=== PATIENT | female | born 1985 | race Asian ===

== ENCOUNTER 2020-06-25 23:44 | Emergency (ER) | payer BC ==
[~2020-06-25] VITALS: Ht 167.6 cm; Wt 58.1 kg
--- NOTE | 2020-06-25 23:50 | NUR ---
CALLED FOR TRIAGE , NO ANSWER
--- NOTE | 2020-06-26 00:23 | NUR ---
AMBULATED TO THE RESTROOM TO PROVIDE URINE SAMPLE
[2020-06-26] MEDS ORDERED: ONDANSETRON HCL/PF 4 MG/2 ML VIAL ONE (00:25)
[2020-06-26] MEDS ORDERED: MORPHINE SULFATE INJ 4 MG/ML DISP.SYRIN ONE (00:26)
[2020-06-26] MEDS ORDERED: IV NS 0.9% 1,000 ML BAG IV ONE (00:30)
[2020-06-26] MEDS ORDERED: MORPHINE SULFATE INJ 2 MG/ML DISP.SYRIN IV ONE (00:30)
[2020-06-26] MEDS ORDERED: ONDANSETRON HCL/PF 4 MG/2 ML VIAL IVP ONE (00:30)
[2020-06-26 00:54] LABS: BASOPHILS % (AUTO) 0.1 % (0.0-2.0); EOSINOPHILS % (AUTO) 0.3 % (0.0-6.0); HEMATOCRIT 39 % (33-45); HEMOGLOBIN 12.3 g/dL (11.5-14.8); LYMPHOCYTES # (AUTO) 1.3 /CMM (0.8-4.8); LYMPHOCYTES % (AUTO) 8.5 % (20.0-44.0); MEAN CORPUSCULAR HGB CONC 32 g/dl (31.0-36.0); MEAN CORPUSCULAR VOLUME 93 fL (82-100); MONOCYTES # (AUTO) 0.9 /CMM (0.1-1.30); MONOCYTES % (AUTO) 6.4 % (2.0-12.0); NEUTROPHILS # (AUTO) 12.6 /CMM (1.8-8.9); NEUTROPHILS % (AUTO) 84.7 % (43.0-81.0); PLATELET COUNT (AUTO) 261 /CMM (150-450); RED BLOOD CELL COUNT(AUTO) 4.12 MIL/uL (4.0-5.2); WHITE BLOOD COUNT (AUTO) 14.8 K/uL (4.3-11.0)
[2020-06-26 00:57] LABS: CALCIUM, SERUM 8.8 mg/dL (8.5-10.1); CREATININE 0.5 mg/dL (0.6-1.3); POTASSIUM 4.2 mmol/L (3.5-5.1)
[2020-06-26 01:07] LABS: APPEARANCE,URINE SL CLOUDY (CLEAR); BILIRUBIN,URINE NEGATIVE (NEGATIVE); BLOOD, URINE LARGE Ery/uL (NEGATIVE); COLOR,URINE YELLOW (YELLOW); KETONES,URINE 15 (NEGATIVE); LEUKOCYTE ESTERASE ,URINE NEGATIVE (NEGATIVE); NITRITE, URINE NEGATIVE (NEGATIVE); PROTEIN,URINE NEGATIVE (NEGATIVE); UGLUCOSE NEGATIVE (NEGATIVE); UROBILINOGEN,URINE 0.2 EU/dL (0.2)
[2020-06-26 01:14] LABS: BACTERIA,URINE Moderate /HPF (None Seen); SQUAMOUS EPITHELIAL CELL,UR Moderate /HPF (None Seen)
[2020-06-26] MEDS ORDERED: CEFTRIAXONE 1GM BAG (ER ONLY) 50 ML IV ONE (02:28)
[2020-06-26] MEDS ORDERED: CEFTRIAXONE 1 G in IV D5W 50 ML IV ONE (02:30)
--- NOTE | 2020-06-26 03:04 | NUR ---
ULTRASOUND AT BEDSIDE
--- NOTE | 2020-06-26 05:13 | NUR ---
Patient discharged to home in stable condition. Written and verbal after care instructions given. Patient verbalizes understanding of instruction.IV removed. Catheter intact and site benign. Pressure and 4x4 applied to site. No bleeding noted.
--- NOTE | 2020-06-26 05:57 | NUR ---
Note undone in ED - 06/26/20 at 0558 by EVICTOR IV removed. Catheter intact and site benign. Pressure and 4x4 applied to site. No bleeding noted.
[2020-06-26 05:59] VITALS: BP 117/75
== END 2020-06-26 05:59 | disposition home or self-care (01) ==
LOC: ER 23:47
DX: N39.0 Urinary tract infection, site not specified (principal)
CPT/HCPCS: 36415; 76856; 80048; 81001; 84703; 85025; 87086; 96361; 96365; 99284; J0696 ×2; J2405; J7030; J7060; 81000-TC; J2270

== ENCOUNTER 2021-06-03 02:46 | Emergency (ER) | payer BC ==
[~2021-06-03] VITALS: Ht 167.6 cm; Wt 62.6 kg
--- NOTE | 2021-06-03 03:00 | NUR ---
PATIENT BIBS STATING CHEST PAIN, PATIENT HAS BEEN POINTING AT EPIGASTRIC, PATIENT STATED PAIN SINCE PAST 4 HRS. PATIENT REPORTED HAVING 2 SHOTS OF TEQUILA EARLIER. PATIENT HAD AN EPISODE OF VOMITING AT HOME. PATIENT IS A/OX 4, RR EVEN AND UNLABORED, NO SOB NOTED. PATIENT CONNECTED TO MONITORS.
[2021-06-03] MEDS ORDERED: LIDOCAINE VISCOUS 2% UD 15 ML UDC ONE (03:16)
[2021-06-03] MEDS ORDERED: MAG HYDROX/AL HYDROX/SIMETH 30 ML UDC ONE (03:16)
[2021-06-03] MEDS ORDERED: FAMOTIDINE (20 MG) 20 MG TABLET ONE (03:16)
[2021-06-03 03:28] LABS: BASOPHILS % (AUTO) 0.1 % (0.0-2.0); EOSINOPHILS % (AUTO) 0.4 % (0.0-6.0); HEMATOCRIT 29 % (33-45); HEMOGLOBIN 9.3 g/dL (11.5-14.8); LYMPHOCYTES # (AUTO) 0.7 K/uL (0.8-4.8); LYMPHOCYTES % (AUTO) 9.5 % (20.0-44.0); MEAN CORPUSCULAR HGB CONC 32 g/dl (31.0-36.0); MEAN CORPUSCULAR VOLUME 82 fL (82-100); MONOCYTES # (AUTO) 0.6 K/uL (0.1-1.30); MONOCYTES % (AUTO) 7.5 % (2.0-12.0); NEUTROPHILS # (AUTO) 6.5 K/uL (1.8-8.9); NEUTROPHILS % (AUTO) 82.5 % (43.0-81.0); PLATELET COUNT (AUTO) 321 K/uL (150-450); WHITE BLOOD COUNT (AUTO) 7.9 K/uL (4.3-11.0)
[2021-06-03] MEDS ORDERED: MAG HYDROX/AL HYDROX/SIMETH 30 ML UDC PO ONE (03:30)
[2021-06-03] MEDS ORDERED: FAMOTIDINE (20 MG) 20 MG TABLET PO ONE (03:30)
[2021-06-03] MEDS ORDERED: LIDOCAINE VISCOUS 2% UD 15 ML UDC MM ONE (03:30)
--- NOTE | 2021-06-03 03:30 | NUR ---
PT PROVIDED WITH WARM BLANKETS.
[2021-06-03 03:39] LABS: CALCIUM, SERUM 8.1 mg/dL (8.5-10.1); CARBON DIOXIDE 26 mmol/L (21-32); CHLORIDE 105 mmol/L (98-107); CREATININE 0.8 mg/dL (0.6-1.3); GLUCOSE 109 mg/dL (74-106); POTASSIUM 3.7 mmol/L (3.5-5.1); SODIUM SERUM 143 mmol/L (136-145); UREA NITROGEN, BLOOD 10 mg/dL (7-18)
[2021-06-03 03:54] LABS: ALANINE AMINOTRANSFERASE 40 U/L (12-78); ALBUMIN 3.5 g/dL (3.4-5.0); ALKALINE PHOSPHATASE 59 U/L (46-116); ASPARTATE AMINOTRANSFERASE 70 U/L (15-37); BILIRUBIN,DIRECT 0.2 mg/dL (0.0-0.2); BILIRUBIN,TOTAL 0.6 mg/dL (0.2-1.0); LIPASE 141 U/L (73-393)
[2021-06-03] MEDS ORDERED: FAMO-131 PO (04:23)
[2021-06-03 04:32] VITALS: BP 128/83
--- NOTE | 2021-06-03 04:32 | NUR ---
Patient discharged to home in stable condition. Written and verbal after care instructions given. Patient verbalizes understanding of instruction.
== END 2021-06-03 04:33 | disposition home or self-care (01) ==
LOC: ER 02:49
DX: R10.13 Epigastric pain (principal); K21.9 Gastro-esophageal reflux disease without esophagitis
CPT/HCPCS: 36415; 71045-TC; 80048-TC; 80076-TC; 83690-TC; 84484-TC; 85025-TC